=== PATIENT | male | born 1935 | race Caucasian/White ===

== ENCOUNTER 2018-01-01 05:09 | Inpatient (IN) | payer OTHER ==
[~2018-01-01] VITALS: Ht 175.3 cm; Wt 93.8 kg
[~2018-01-01 05:09] MED LIST: CEFTIN500 MG PO; CLONAZEPAM0.5 MG PO; LISINOPRIL10 MG PO; SUCRALFATE1 GM PO
[2018-01-01 06:33] LABS: BASOPHIL (%) 0.3 % (0-1); EOSINOPHIL (%) 0.1 % (0-5); HEMATOCRIT 42.7 % (38.0-50.0); HEMOGLOBIN 14.3 G/DL (12.5-16.6); IMMATURE GRANULOCYTE (%) 0.4 % (0.0-0.7); LYMPHOCYTE (%) 3.6 % (15-42); LYMPHOCYTE COUNT 0.3 K/uL (1.0-2.8); MCH 31.4 PG (29.0-34.0); MCHC 33.5 G/DL (30.0-36.0); MCV 93.8 FL (86-99); MONOCYTE (%) 0.5 % (3-12); NEUTROPHIL (%) 95.1 % (45-76); NEUTROPHIL COUNT 7.4 K/uL (1.8-6.4); PLATELET COUNT 97 K/uL (156-360); RBC DIS.WIDTH-CV 13.8 % (11.8-14.6); RBC DIS.WIDTH-SD 47.5 % (39-53); RED BLOOD COUNT 4.55 M/uL (4.00-5.50); WHITE BLOOD COUNT 7.8 K/uL (4.1-10.2)
[2018-01-01 06:44] LABS: ALBUMIN 3.6 g/dL (3.2-4.8); CHLORIDE 103 mEq/L (99-109); POTASSIUM 4.4 mEq/L (3.7-5.4); SODIUM 136 mEq/L (136-147)
[2018-01-01 06:47] LABS: GLUCOSE 130 mg/dL (70-99); TOTAL PROTEIN 7.1 g/dL (6.4-8.3)
[2018-01-01 06:48] LABS: TOTAL BILIRUBIN 3.3 mg/dL (0.0-1.0)
[2018-01-01 06:50] LABS: ALKALINE PHOSPHATASE 158 IU/L (3-129); CREATININE 1.3 mg/dL (0.6-1.3); GFR ESTIMATE (CALCULATED) 56 mL/min/ (58.99-99999)
[2018-01-01 06:51] LABS: UREA NITROGEN (BUN) 14 mg/dL (9-23)
[2018-01-01 06:52] LABS: AST (GOT) 266 IU/L (2-34)
[2018-01-01 06:53] LABS: ALT (GPT) 383 IU/L (3-49)
[2018-01-01 06:59] LABS: TROP-I INTERPRETATION NEGATIVE; TROPONIN-I 0.05 ng/mL (0.0-0.30)
[2018-01-01] MEDS ORDERED: LIBRIUM10 MG PO (09:30)
[2018-01-01] MEDS ORDERED: LEXAPRO10 MG PO (09:30)
[2018-01-01] MEDS ORDERED: PROBIOTIC1 EAC1 PO (09:31)
[2018-01-01 09:36] LABS: APPEARANCE CLEAR ((CLEAR)); BILIRUBIN NEGATIVE; BLOOD MODERATE; COLOR YELLOW ((YELLOW)); GLUCOSE (STRIP) NEGATIVE; KETONES NEGATIVE; LEUKOCYTES NEGATIVE; NITRITE NEGATIVE; PROTEIN (STRIP) NEGATIVE; SPECIFIC GRAVITY 1.048 (1.000-1.030)
[2018-01-01 09:39] LABS: BACTERIA RARE /HPF; EPITHELIAL CELLS RARE /HPF; MUCUS NONE SEEN /LPF; RED BLOOD CELLS 0-5 /HPF (0-5); UCUL ADDED? NO; WHITE BLOOD CELLS 0-5 /HPF (0-5)
[2018-01-01 09:50] LABS: LIPASE 6 U/L (1.0-51.0)
[2018-01-01 11:57] VITALS: BP 101/56
[2018-01-01 12:13] LABS: TROP-I INTERPRETATION NEGATIVE; TROPONIN-I 0.09 ng/mL (0.0-0.30)
[2018-01-01 18:38] LABS: TROP-I INTERPRETATION NEGATIVE; TROPONIN-I 0.06 ng/mL (0.0-0.30)
[2018-01-01 19:33] VITALS: BP 110/69
[2018-01-01 23:49] VITALS: BP 161/85
[2018-01-02 01:02] LABS: TROP-I INTERPRETATION NEGATIVE; TROPONIN-I 0.04 ng/mL (0.0-0.30)
[2018-01-02 03:57] VITALS: BP 136/80
[2018-01-02 06:07] LABS: INTER. NORMALIZED RATIO 1.2
[2018-01-02 06:08] LABS: BASOPHIL (%) 0.3 % (0-1); EOSINOPHIL (%) 1.2 % (0-5); EOSINOPHIL COUNT 0.1 K/uL (0-0.3); HEMATOCRIT 37.3 % (38.0-50.0); IMMATURE GRANULOCYTE (%) 0.3 % (0.0-0.7); LYMPHOCYTE (%) 7.9 % (15-42); LYMPHOCYTE COUNT 0.8 K/uL (1.0-2.8); MCH 30.8 PG (29.0-34.0); MCHC 31.9 G/DL (30.0-36.0); MCV 96.6 FL (86-99); MONOCYTE (%) 8.6 % (3-12); MONOCYTE COUNT 0.9 K/uL (0-0.8); NEUTROPHIL (%) 81.7 % (45-76); NEUTROPHIL COUNT 8.5 K/uL (1.8-6.4); PLATELET COUNT 88 K/uL (156-360); RBC DIS.WIDTH-CV 14.6 % (11.8-14.6); RBC DIS.WIDTH-SD 51.9 % (39-53); RED BLOOD COUNT 3.86 M/uL (4.00-5.50); WHITE BLOOD COUNT 10.4 K/uL (4.1-10.2)
[2018-01-02 06:10] LABS: PTT 39.3 SEC (25-37)
[2018-01-02 06:11] LABS: HEMOGLOBIN 11.9 G/DL (12.5-16.6)
[2018-01-02 06:33] LABS: ALKALINE PHOSPHATASE 85 IU/L (3-129); ALT (GPT) 199 IU/L (3-49); AST (GOT) 116 IU/L (2-34); CHLORIDE 110 MEQ/L (99-109); CREATININE 1.2 MG/DL (0.6-1.3); GFR ESTIMATE (CALCULATED) > 59 mL/min/ (58.99-99999); POTASSIUM 4.4 MEQ/L (3.7-5.4); SODIUM 142 MEQ/L (136-147); TOTAL BILIRUBIN 1.2 MG/DL (0.0-1.0); TOTAL PROTEIN 5.5 G/DL (6.4-8.3); UREA NITROGEN (BUN) 20 mg/dL (9-23)
[2018-01-02 06:38] LABS: GLUCOSE 92 mg/dL (70-99)
[2018-01-02 07:32] VITALS: BP 159/81
[2018-01-02 11:18] LABS: HEPATITIS B SURFACE ANTIGEN Nonreactive
[2018-01-02 11:19] LABS: HEPATITIS C ANTIBODY Nonreactive
[2018-01-02 11:20] LABS: ANTI-HEPATITIS A VIRUS (IGM) Nonreactive; ANTI-HEPATITIS B CORE (IGM) Nonreactive
[2018-01-02 11:25] VITALS: BP 120/69
[2018-01-02 15:46] VITALS: BP 138/74
[2018-01-02 20:32] VITALS: BP 168/79
[2018-01-03] VITALS: BP 166/81
[2018-01-03 04:00] VITALS: BP 165/84
[2018-01-03 06:23] LABS: HEMATOCRIT 33.7 % (38.0-50.0); HEMOGLOBIN 10.8 G/DL (12.5-16.6); MCH 30.9 PG (29.0-34.0); MCV 96.6 FL (86-99); PLATELET COUNT 81 K/uL (156-360); RBC DIS.WIDTH-CV 14.6 % (11.8-14.6); RBC DIS.WIDTH-SD 51.8 % (39-53); RED BLOOD COUNT 3.49 M/uL (4.00-5.50); WHITE BLOOD COUNT 5.9 K/uL (4.1-10.2)
[2018-01-03 06:45] LABS: CHLORIDE 112 MEQ/L (99-109); GFR ESTIMATE (CALCULATED) > 59 mL/min/ (58.99-99999); GLUCOSE 99 mg/dL (70-99); POTASSIUM 4.2 MEQ/L (3.7-5.4); SODIUM 144 MEQ/L (136-147); UREA NITROGEN (BUN) 17 mg/dL (9-23)
[2018-01-03 07:30] VITALS: BP 155/91
[2018-01-03 12:05] VITALS: BP 154/92
[2018-01-03 19:26] VITALS: BP 153/84
[2018-01-03 23:56] VITALS: BP 155/81
[2018-01-04 03:34] VITALS: BP 167/83
[2018-01-04 06:21] LABS: BASOPHIL (%) 0.6 % (0-1); EOSINOPHIL (%) 3.6 % (0-5); EOSINOPHIL COUNT 0.2 K/uL (0-0.3); HEMOGLOBIN 11.3 G/DL (12.5-16.6); IMMATURE GRANULOCYTE (%) 0.2 % (0.0-0.7); LYMPHOCYTE (%) 17.8 % (15-42); LYMPHOCYTE COUNT 0.8 K/uL (1.0-2.8); MCH 30.7 PG (29.0-34.0); MCHC 32.3 G/DL (30.0-36.0); MCV 95.1 FL (86-99); MONOCYTE COUNT 0.7 K/uL (0-0.8); NEUTROPHIL (%) 63.8 % (45-76); PLATELET COUNT 93 K/uL (156-360); RBC DIS.WIDTH-CV 14.1 % (11.8-14.6); RBC DIS.WIDTH-SD 49.4 % (39-53); RED BLOOD COUNT 3.68 M/uL (4.00-5.50); WHITE BLOOD COUNT 4.7 K/uL (4.1-10.2)
[2018-01-04 06:44] LABS: CHLORIDE 110 MEQ/L (99-109); CREATININE 0.9 MG/DL (0.6-1.3); GFR ESTIMATE (CALCULATED) > 59 mL/min/ (58.99-99999); GLUCOSE 103 mg/dL (70-99); POTASSIUM 3.9 MEQ/L (3.7-5.4); SODIUM 143 MEQ/L (136-147); UREA NITROGEN (BUN) 11 mg/dL (9-23)
[2018-01-04 07:23] VITALS: BP 195/94
[2018-01-04 08:04] LABS: FOLIC ACID (FOLATE) 11.2 NG/ML (5.0-22.0)
[2018-01-04 09:16] LABS: ALBUMIN 2.9 G/DL (3.2-4.8); ALKALINE PHOSPHATASE 82 IU/L (3-129); ALT (GPT) 97 IU/L (3-49); DIRECT BILIRUBIN 0.3 mg/dL (0.0-0.3); TOTAL PROTEIN 5.5 G/DL (6.4-8.3)
[2018-01-04 09:18] LABS: AST (GOT) 41 IU/L (2-34); TOTAL BILIRUBIN 0.7 MG/DL (0.0-1.0)
[2018-01-04] MEDS ORDERED: CEFTRIAXONE2 G1 IV (12:11)
[2018-01-04 13:26] VITALS: BP 169/78
== END 2018-01-04 13:38 | disposition home or self-care (01) | DRG 872 ==
LOC: EME → EDBD 05:09 → EME 05:09 → ENRESERV 09:49 → 5SOUTH 09:49 → EDOF 09:49 → ENRESERV 09:57 → 5SOUTH 11:03
PROVIDERS: Emergency Medicine; Hospitalist; Internal Medicine Hematology & Oncology; Physician Assistant; Physician Assistant Medical; Specialist
DX: A41.51 Sepsis due to Escherichia coli [E. coli] (principal); N39.0 Urinary tract infection, site not specified; R79.89 Other specified abnormal findings of blood chemistry; D69.59 Other secondary thrombocytopenia; D64.9 Anemia, unspecified; I10 Essential (primary) hypertension; J20.9 Acute bronchitis, unspecified; K21.9 Gastro-esophageal reflux disease without esophagitis; F32.9 Major depressive disorder, single episode, unspecified; F41.0 Panic disorder [episodic paroxysmal anxiety]; N40.0 Benign prostatic hyperplasia without lower urinary tract symptoms; Z66 Do not resuscitate; E63.9 Nutritional deficiency, unspecified; R00.0 Tachycardia, unspecified; R32 Unspecified urinary incontinence; R35.0 Frequency of micturition; K44.9 Diaphragmatic hernia without obstruction or gangrene; K29.70 Gastritis, unspecified, without bleeding; K57.30 Diverticulosis of large intestine without perforation or abscess without bleeding
CPT/HCPCS: 71046; 71275; 74177; 74181; 80048; 80053; 80074; 80076; 80202; 81003; 82607; 82746; 83605; 83690; 84145 90; 84153; 84484; 85025; 85027; 85379; 85610; 85730; 87040; 87077; 87186; 87641; 87801; 93005; 94010; 94640; 94799; 99202; 99281; 99285; J0456; J0696; J1644; J1650; J2543; J2765; J3370; J7030; J7050

== ENCOUNTER 2018-01-06 17:05 | Emergency (ER) | payer OTHER ==
[~2018-01-06] VITALS: Ht 175.3 cm; Wt 95.6 kg
[~2018-01-06 17:05] MED LIST changes: +CEFTRIAXONE2 G1 IV; +LEXAPRO10 MG PO; +LIBRIUM10 MG PO; +PROBIOTIC1 EAC1 PO
[2018-01-06 18:22] LABS: HEMATOCRIT 35.6 % (38.0-50.0); MCH 31.4 PG (29.0-34.0); MCHC 33.7 G/DL (30.0-36.0); MCV 93.2 FL (86-99); RBC DIS.WIDTH-CV 13.5 % (11.8-14.6); RBC DIS.WIDTH-SD 45.7 % (39-53); RED BLOOD COUNT 3.82 M/uL (4.00-5.50); WHITE BLOOD COUNT 8.5 K/uL (4.1-10.2)
[2018-01-06 18:24] LABS: PLATELET COUNT 135 K/uL (156-360)
[2018-01-06] MEDS ORDERED: ZANTAC150 MG PO (19:17)
[2018-01-06 19:48] VITALS: BP 155/78
== END 2018-01-06 19:50 | disposition home or self-care (01) ==
LOC: EME 17:05
PROVIDERS: Physician Assistant
DX: K92.2 Gastrointestinal hemorrhage, unspecified (principal); I10 Essential (primary) hypertension; K21.9 Gastro-esophageal reflux disease without esophagitis; F32.9 Major depressive disorder, single episode, unspecified; F41.9 Anxiety disorder, unspecified
CPT/HCPCS: 85027; 99281; 99284